=== PATIENT | female | born 1970 | race Caucasian/White ===

== ENCOUNTER → 2023-12-25 10:17 | Outpatient (REF) | payer BC, SELFPAY ==
[2023-12-25 13:07] LABS: ALT (SGPT) 50 U/L (0-35); AST (SGOT) 100 U/L (14-36); Alkaline Phosphatase 96 U/L (38-126); Direct Bilirubin 0.1 mg/dl (0.0-0.4); HDL Cholesterol 68 mg/dl; LDL Cholesterol, Calculated 90 mg/dl; Total Bilirubin 1.1 mg/dl (0.2-1.3); Total Cholesterol 206 mg/dl (50-199); Total Protein 8.4 g/dl (6.3-8.2); Triglyceride 243 mg/dl (10-149); Very Low Density Lipoprotein 48 mg/dl (0-30)
[2023-12-25 13:15] LABS: Free T4 1.56 ng/dl (0.78-2.19)
[2023-12-25 13:29] LABS: TSH < 0.02 uIU/ml (0.47-4.68)
[2023-12-27 09:52] LABS: Thyroglobulin <0.1 ng/mL (1.3-31.8); Thyroglobulin Antibodies <0.9 IU/mL (0.0-4.0)
== END ==
LOC: HWLAB 10:17
PROVIDERS: ATTENDING PHYSICIAN Internal Medicine Cardiovascular Disease; FAMILY PHYSICIAN Nurse Practitioner Family; REFERRING PHYSICIAN Physician Assistant
DX: E78.1 Pure hyperglyceridemia (principal); E03.9 Hypothyroidism, unspecified; Z85.850 Personal history of malignant neoplasm of thyroid
CPT/HCPCS: 36415; 80061; 80076; 84432; 84439; 84443; 86800

== ENCOUNTER → 2024-07-01 10:07 | Outpatient (REF) | payer BC, SELFPAY ==
[2024-07-01 12:08] LABS: % Basophils 0.5 % (0-2); % Eosinophils 1.9 % (0-6); % Immature Granulocytes 0.3 % (0-0.5); % Lymphocytes 35.7 % (20.5-51.1); % Monocytes 5.6 % (1.7-9.3); Absolute Eosinophils 0.1 10^3/uL (0-0.7); Absolute Lymphocytes 2.1 10^3/uL (1.2-3.4); Absolute Monocytes 0.3 10^3/uL (0.1-0.6); Absolute Neutrophils 3.2 10^3/uL (1.4-6.5); Hematocrit 43.5 % (37.0-47.0); Hemoglobin 15.1 g/dL (12.0-16.0); Mean Corp Hgb Conc. 34.7 g/dL (33.0-37.0); Nucleated Red Blood Cells % 0 %; Platelet Count 257 10^3/uL (130-400); Red Blood Cell Count 4.58 10^6/uL (4.20-5.40); Red Cell Dist. Width 12.5 % (11.5-14.5); White Blood Cell Count 5.8 10^3/uL (4.8-10.8)
[2024-07-01 12:10] LABS: Urine Albumin 1+ (Neg - Trace); Urine Bilirubin Negative (Negative); Urine Character Slightly Cloudy (Clear); Urine Color Yellow; Urine Glucose Negative (Negative); Urine Ketone Negative (Negative); Urine Leukocyte 2+ (Negative); Urine Nitrite Negative (Negative); Urine Occult Blood 1+ (Negative); Urine Urobilinogen Negative (Neg - 1+)
[2024-07-01 12:18] LABS: Urine Squamous Cell >30 /LPF (Few)
[2024-07-01 12:22] LABS: Urine White Cell 50-60 /HPF (0-5)
[2024-07-01 12:23] LABS: Urine Bacteria Many (Negative)
[2024-07-01 12:26] LABS: Urine Urothelial Cell 26-30 /LPF (FEW)
[2024-07-01 12:40] LABS: ALT (SGPT) 39 U/L (0-35); AST (SGOT) 54 U/L (14-36); Albumin 4.9 g/dl (3.5-5.0); Alkaline Phosphatase 110 U/L (38-126); Blood Urea Nitrogen 14 mg/dl (7-17); Calcium 10.1 mg/dl (8.4-10.2); Carbon Dioxide 26 mmol/L (22-30); Chloride 103 mmol/L (98-107); Glucose 100 mg/dl (70-99); HDL Cholesterol 69 mg/dl; LDL Cholesterol, Calculated 105 mg/dl; Potassium 4.8 mmol/L (3.5-5.1); Sodium 144 mmol/L (135-145); Total Bilirubin 1.8 mg/dl (0.2-1.3); Total Cholesterol 217 mg/dl (50-199); Total Protein 8.1 g/dl (6.3-8.2); Triglyceride 219 mg/dl (10-149); Very Low Density Lipoprotein 43 mg/dl (0-30); eGFR > 60.00
[2024-07-01 12:57] LABS: Vitamin D, 25-OH*** 58.4 ng/mL (30-80)
[2024-07-01 13:11] LABS: TSH 0.16 uIU/ml (0.47-4.68)
== END ==
LOC: HWLAB 10:07
PROVIDERS: ATTENDING PHYSICIAN Nurse Practitioner Family
DX: Z13.89 Encounter for screening for other disorder (principal); Z13.1 Encounter for screening for diabetes mellitus; Z13.0 Encounter for screening for diseases of the blood and blood-forming organs and certain disorders involving the immune mechanism; E78.2 Mixed hyperlipidemia; E03.9 Hypothyroidism, unspecified; E55.9 Vitamin D deficiency, unspecified
CPT/HCPCS: 36415; 80053; 80061; 81003; 81015; 82306; 84443; 85025

== ENCOUNTER → 2024-10-18 10:51 | Outpatient (REF) | payer BC, SELFPAY ==
[2024-10-18 12:16] LABS: Urine Albumin Trace (Neg - Trace); Urine Bilirubin Negative (Negative); Urine Character Very Cloudy (Clear); Urine Color Amber; Urine Glucose Negative (Negative); Urine Ketone Negative (Negative); Urine Leukocyte Trace (Negative); Urine Nitrite Negative (Negative); Urine Occult Blood 1+ (Negative); Urine Specific Gravity 1.025 (<1.030); Urine Urobilinogen Negative (Neg - 1+)
[2024-10-18 12:19] LABS: % Basophils 0.9 % (0-2); % Eosinophils 2.7 % (0-6); % Immature Granulocytes 0.2 % (0-0.5); % Lymphocytes 41.8 % (20.5-51.1); % Monocytes 6.6 % (1.7-9.3); % Neutrophils 47.8 % (42.2-75.2); Absolute Eosinophils 0.1 10^3/uL (0-0.7); Absolute Lymphocytes 1.8 10^3/uL (1.2-3.4); Absolute Monocytes 0.3 10^3/uL (0.1-0.6); Absolute Neutrophils 2.1 10^3/uL (1.4-6.5); Hematocrit 42.2 % (37.0-47.0); Hemoglobin 14.1 g/dL (12.0-16.0); Mean Corp Hgb Conc. 33.4 g/dL (33.0-37.0); Mean Corpuscular Hgb 31.8 pg (27.0-31.0); Mean Corpuscular Volume 95.3 fL (81.0-99.0); Mean Platelet Volume 9.9 fL (7.4-10.4); Nucleated Red Blood Cells % 0 %; Platelet Count 298 10^3/uL (130-400); Red Blood Cell Count 4.43 10^6/uL (4.20-5.40); Red Cell Dist. Width 12.8 % (11.5-14.5); White Blood Cell Count 4.4 10^3/uL (4.8-10.8)
[2024-10-18 12:23] LABS: Urine Amorphous Seen; Urine Bacteria Many (Negative); Urine Red Blood Cell 0-2 /HPF (0-2)
[2024-10-18 12:31] LABS: HDL Cholesterol 66 mg/dl; LDL Cholesterol, Calculated 110 mg/dl; Total Cholesterol 213 mg/dl (50-199); Triglyceride 185 mg/dl (10-149); Very Low Density Lipoprotein 37 mg/dl (0-30)
[2024-10-18 12:46] LABS: Free T4 1.12 ng/dl (0.78-2.19)
[2024-10-18 13:00] LABS: TSH 1.63 uIU/ml (0.47-4.68)
[2024-10-19 13:46] LABS: Thyroglobulin <0.1 ng/mL (1.3-31.8); Thyroglobulin Antibodies <0.9 IU/mL (0.0-4.0)
== END ==
LOC: HWLAB 10:51
PROVIDERS: ATTENDING PHYSICIAN Physician Assistant; FAMILY PHYSICIAN Nurse Practitioner Family
DX: E03.9 Hypothyroidism, unspecified (principal); R79.89 Other specified abnormal findings of blood chemistry; E78.1 Pure hyperglyceridemia; R82.90 Unspecified abnormal findings in urine
CPT/HCPCS: 36415; 80061; 81003; 81015; 84432; 84439; 84443; 85025; 86800

== ENCOUNTER → 2025-01-06 06:50 | Outpatient (REF) | payer BC, SELFPAY ==
[2025-01-06 09:38] LABS: Hematocrit 40.8 % (37.0-47.0); Hemoglobin 13.6 g/dL (12.0-16.0); Mean Corp Hgb Conc. 33.3 g/dL (33.0-37.0); Mean Corpuscular Hgb 31.3 pg (27.0-31.0); Mean Corpuscular Volume 93.8 fL (81.0-99.0); Mean Platelet Volume 9.7 fL (7.4-10.4); Platelet Count 288 10^3/uL (130-400); Red Blood Cell Count 4.35 10^6/uL (4.20-5.40); Red Cell Dist. Width 12.9 % (11.5-14.5); White Blood Cell Count 4.2 10^3/uL (4.8-10.8)
[2025-01-06 09:41] LABS: ALT (SGPT) 32 U/L (0-35); AST (SGOT) 42 U/L (14-36); Albumin 4.5 g/dl (3.5-5.0); Alkaline Phosphatase 52 U/L (38-126); Blood Urea Nitrogen 14 mg/dl (7-17); Calcium 9.6 mg/dl (8.4-10.2); Carbon Dioxide 25 mmol/L (22-30); Chloride 110 mmol/L (98-107); Glucose 92 mg/dl (70-99); HDL Cholesterol 52 mg/dl; LDL Cholesterol, Calculated 92 mg/dl; Potassium 4.4 mmol/L (3.5-5.1); Sodium 144 mmol/L (135-145); Total Bilirubin 0.8 mg/dl (0.2-1.3); Total Cholesterol 176 mg/dl (50-199); Total Protein 7.4 g/dl (6.3-8.2); Triglyceride 164 mg/dl (10-149); Very Low Density Lipoprotein 32 mg/dl (0-30); eGFR > 60.00
[2025-01-06 09:58] LABS: Vitamin D, 25-OH*** 51.1 ng/mL (30-80)
[2025-01-06 10:11] LABS: TSH 1.99 uIU/ml (0.47-4.68)
[2025-01-06 11:29] LABS: % Basophils 0.7 % (0-2); % Eosinophils 2.7 % (0-6); % Immature Granulocytes 0.2 % (0-0.5); % Monocytes 6.5 % (1.7-9.3); % Neutrophils 37.9 % (42.2-75.2); Absolute Eosinophils 0.1 10^3/uL (0-0.7); Absolute Lymphocytes 2.2 10^3/uL (1.2-3.4); Absolute Monocytes 0.3 10^3/uL (0.1-0.6); Absolute Neutrophils 1.6 10^3/uL (1.4-6.5); Nucleated Red Blood Cells % 0 %
== END ==
LOC: HWLAB 06:50
PROVIDERS: ATTENDING PHYSICIAN Nurse Practitioner Family
DX: Z13.0 Encounter for screening for diseases of the blood and blood-forming organs and certain disorders involving the immune mechanism (principal); Z13.1 Encounter for screening for diabetes mellitus; E78.2 Mixed hyperlipidemia; E55.9 Vitamin D deficiency, unspecified; E03.9 Hypothyroidism, unspecified
CPT/HCPCS: 36415; 80053; 80061; 82306; 84443; 85025

== ENCOUNTER 2025-01-10 06:16 | Day surgery (SDC) | payer BC, SELFPAY | END 2025-01-10 08:37 | disposition home or self-care (01) | LOC: GI 06:16 | PROVIDERS: ATTENDING PHYSICIAN Internal Medicine | DX: Z12.11 Encounter for screening for malignant neoplasm of colon (principal); D12.0 Benign neoplasm of cecum; D12.2 Benign neoplasm of ascending colon; K62.1 Rectal polyp; K64.8 Other hemorrhoids | CPT/HCPCS: 45385; 45380; 88305 ==

== ENCOUNTER → 2025-03-22 13:45 | Outpatient (REF) | payer BC, SELFPAY | LOC: HWWDC 13:45 | PROVIDERS: ATTENDING PHYSICIAN Nurse Practitioner Adult Health; FAMILY PHYSICIAN Nurse Practitioner Family | DX: Z12.31 Encounter for screening mammogram for malignant neoplasm of breast (principal) | CPT/HCPCS: 77063; 77067 ==